=== PATIENT | male | born 1990 | race Caucasian/White ===

== ENCOUNTER 2021-11-09 00:27 | Day surgery (SDC) | payer OTHER, SELFPAY ==
[2021-11-03 17:38] VITALS: BMI 29.9
--- NOTE | 2021-11-03 17:43 | PC.NURSE ---
Report to the Outpatient Waiting Room, entrance under the green pavilion located off [facility], at time 1100___ on date 11/09/21_. OR Time: ___1300_. - You and your visitor will be asked to self-screen and do not enter if you have any COVID symptoms. - Only one visitor and NO children visitors are allowed at this time. - The patient visitor is requested to leave or wait in car when not with patient due to restrictions. - A mask is required within the hospital. Patients may have clear liquids (water, carbonated beverages, clear teas, apple juice) until 3 hours prior to surgery with a maximum of 20 ounces. - No food from midnight until time of surgery - Infants may have breast milk until 4 hours before surgery, formula 6 hours prior to surgery. - Children will be allowed to drink immediately following surgery. If applicable, please bring a bottle or sippy cup to assist with drinking. Juice, water, soda, and popsicles are readily available. For infants on formula, please bring formula the day of surgery. Pacifiers are allowed. Take the following medications with a SIP of water the morning of surgery: NONE Medications to discontinue per physician NONE Date to take last dose Please no make-up, nail argentine, hairspray, perfume, deodorant, or body powder the day of surgery. No jewelry (including any body piercings) or valuables the day of surgery, leave them at home. Please take a shower or bath the night before, or the morning of, surgery with an antibacterial soap. Wear comfortable, loose fitting clothing. Children are encouraged to wear pajamas. - Jewelry must be removed prior to entering the operating room. Rings and piercings that are not removed may be cut off. - The hospital will not accept responsibility for valuables. - Please leave all valuables, including medications, at home the day of surgery. If you are going home after surgery, a licensed interstate bus driver must drive you home. - NO public transportation without another adult. - We recommend that an adult stay with you for 24 hours following discharge. - We also recommend that you do not drive, make important decision, drink alcoholic beverages, or take any drugs that were not prescribed by your health care provider for at least 24 hours after your discharge time. For Pediatric surgeries, we recommend two adults accompany the child home (only one inside the building at this time). Follow any additional instructions given to you from your surgeon. If you or anyone in your household have experienced Covid symptoms in the past week, please notify your surgeon or the nurse liaison at the phone number below for possible testing. Telephone instructions given to ___LANE__and asked if any additional questions and then verbalized understanding. Patient advised to call surgeon office or pre surgery nurse liaison [phone] if any additional questions.
[2021-11-09 11:00] VITALS: BP 118/65; PULSE 61; RESP 18; TEMP 36.6; O2SAT 99
[2021-11-09] MEDS: LACTATED RINGERS 1,000 ML 30 ML IV CONT ×2 (11:00→14:29)
[2021-11-09] MEDS: ACETAMINOPHEN 500 MG TABLET 1000 MG PO (11:15)
[2021-11-09] MEDS: KETOROLAC 15 MG/ML VIAL (*BKC) IV PUSH (11:15)
--- NOTE | 2021-11-09 11:29 | P.PNAN_ITS ---
Anes - Initial Pre Proc Eval Procedure: Operation Date: 11/09/21 12:30 Proposed Procedures p Right Inguinal Hernia Repair - Forest Shirley MD Date/Time: 11/09/21 11:29 Surgeon: Forest Shirley MD Pre Op Diagnosis: right inguinal hernia Patient Data Age: 31 Gender: M Height: 1.83 m Weight: 100 kg Allergies Allergy/AdvReac Type Severity Reaction Status Date / Time No Known Allergies Allergy Verified 11/03/21 17:37 Home Medications Medication Instructions Recorded Confirmed Type No Home Medications 10/24/21 11/03/21 History Patient hx anesthesia problems: none Family hx anesthesia problems: none Results Review: All pre-operative results and documents have been reviewed as part of the pre- operative evaluation. [facility] Surgical History Surgical History History of tonsillectomy Family History Family History Mother Patient's mother is in good health Father Patient's father is in good health Sibling Patient's brother is in good health Grandparent Diabetes mellitus Cerebrovascular accident Social History Social History Smoking status: Former smoker Tobacco type: e-cigarettes/vaping Additional smoking assessment comments: VAPED FOR ONE WEEK Alcohol intake: current Alcohol use details: 2 PER MONTH Living arrangements: alone Additional occupation/education comments: Chemical [employer] Anes - Eval Final PreProcedure Day of Procedure 11/09/21 11:29 Patient weight: overweight Heart: regular rate and rhythm Lungs: clear to auscultation Airway: Mallampati scale class II Neurological: alert and oriented Last oral intake: >/= 8 hours ASA classification: II Emergent: no Anesthetic plan: proceed Anesthesia type and monitoring: general GIVS and standard monitoring Results Review: All pre-operative results and documents have been reviewed as part of the pre- operative evaluation. Informed Consent: The patient's anesthetic plan and its attendant risks and benefits were discussed with the patient/family/POA. Questions were solicited and answers provided to the satisfaction of the patient/family/POA.
--- NOTE | 2021-11-09 13:10 | WPDHPUPDATE1 ---
History and Physical Update Update Date/Time: 11/09/21 13:10 History and Physical has been reviewed, including an updated exam of the patient. There are NO changes in the patient's condition. Risks, benefits, and alternatives have been discussed and questions answered. Patient agrees to proceed with procedure.
[2021-11-09] MEDS: ceFAZolin 2 GM/D5W 50 ML 2 GM/50 ML BAG IVPB (13:15)
[2021-11-09 14:35] VITALS: BP 116/56; PULSE 72; RESP 12; O2SAT 98
--- NOTE | 2021-11-09 14:35 | W.PM.PROC2 ---
Procedure Note - Detailed Date of Procedure 11/09/21 Pre-op Diagnosis right inguinal hernia Post-op Diagnosis Same Procedure Performed Right inguinal hernia repair with extra-large PerFix Light plug and patch Surgeon Forest Shirley MD Bus Driver Supervisor Jerrica DAWN Anesthesia General (G IV S), Local (0.25% bupivacaine with epinephrine) and Other (Xaracoll) Indications Patient is a 31-year-old man who had noticed a bulge in the right groin. He saw his primary care physician and was noted to have a right inguinal hernia. This is gotten even bigger in the last 3 or 4 weeks. He was seen in the office and found to have a reducible right inguinal hernia. He is taken to surgery now for repair Findings For showed a large direct inguinal hernia. There was no indirect hernia. There was no real scar tissue from his repair done 30 years ago when he was an . Description of Procedure Patient was taken to surgery and anesthesia was introduced. The right groin and genitalia were prepped and draped. The proposed incision was marked on the skin. Local anesthesia was infiltrated in the skin and the deeper subcutaneous tissues. Incision was made dissection was carried down through the subcutaneous to the external oblique aponeurosis. The aponeurosis was exposed as was the external ring. Additional local was infiltrated deep to the aponeurosis in the area of the spermatic cord and inguinal canal contents. The aponeurosis was then opened laterally and extended medially through the external ring. Care was taken to avoid injury to the ilioinguinal nerve. The nerve was left attached to the spermatic cord and was avoided during the surgery to prevent injury. We then freed the leaves of the external oblique aponeurosis from the underlying inguinal canal contents. The cord was mobilized medially on a Jozef drain. The hernia was readily apparent and was obviously a direct hernia. Dissection of the hernia from the spermatic cord was carried out. The hernia defect occupied nearly the entire direct space. Once the hernia was dissected out adequately, the transversalis fascia was scored circumferentially around the hernia defect just above the neck. The hernia defect was then reduced. The defect was plugged with the extra-large PerFix Light plug. The edges of the plug was sutured to the transversalis fascia with interrupted 3-0 Vicryl suture. I then mostly closed the defect by suturing transversalis fascia to the mesh and to itself with interrupted 3-0 Vicryl suture. I looked in the spermatic cord. I did not see any indirect hernias. There was some lipomatous tissue which I dissected free from the cord structures and back to the internal ring. I amputated the lipomatous tissue and discarded it. I then cut the patch to the appropriate size and laid over the inguinal canal floor. The lateral leaves were passed beyond the cord. The 1st piece of Xaracoll was then laid over the patch. The spermatic cord and ilioinguinal nerve were laid over the Xaracoll. The external oblique aponeurosis was closed with interrupted 3-0 Vicryl suture. A 2nd piece of Xaracoll was then placed on the aponeurosis. Dipak's fascia was closed with interrupted 3-0 Vicryl suture. Last piece of Xaracoll was placed in the subcutaneous. The skin was loosely approximated with 4-0 Vicryl subcuticular interrupted skin suture. The skin was finally closed with a running 4-0 Monocryl skin suture. The wound was dressed with Exofin surgical adhesive. The patient was awakened and taken to recovery in good condition. Sponge and needle counts were correct x2. Implants Extra large PerFix Light plug and patch, Xaracoll Estimated Blood Loss -5 Drains No Packing No Pathology None sent Complications No immediate complications Condition Stable Disposition Same day [facility] Billing Surgery - Charge Forward: Surgery Billing (Right inguinal hernia repair)
[2021-11-09 15:05] VITALS: BP 112/69; PULSE 70; RESP 12
[2021-11-09 15:35] VITALS: BP 119/74; PULSE 58; RESP 12
== END 2021-11-09 16:40 | disposition home or self-care (01) ==
PROVIDERS: PCP Family Medicine; Visit Provider Surgery
PROC: (CPT 49505; principal; 2021-11-09 12:30)
DX: K40.90 Unilateral inguinal hernia, without obstruction or gangrene, not specified as recurrent (principal)
CPT/HCPCS: 49505; A9270; C1781; J0690; J1170; J1885; J2250; J3010; J7120

== ENCOUNTER 2024-06-19 11:27 | Outpatient (CLI) | payer BC, SELFPAY ==
--- NOTE | ~2024-06-19 | XR_ITS ---
XR hip BI 2V w AP pelvis 06/19/2024 12:05 Indication: Left hip pain Procedure: AP pelvis and 2 views each hip Comparison: No prior studies for comparison. Findings: There is anatomic alignment. No fracture or traumatic malalignment. Pelvic rings are intact . Sacral foramen are symmetric. Impression: 1: No significant bone or joint abnormality. Reviewed, dictated and finalized at location A. Impression: 1: No significant bone or joint abnormality.
--- NOTE | ~2024-06-19 | XR_ITS ---
3 VIEWS LUMBAR SPINE Ordering provider: Neal Wyatt MD History: . BACK PAIN . Comparison: None. FINDINGS: VERTEBRAL BODIES: No visible fracture or subluxation. DISK SPACES: Slight narrowing of the disc L4-L5 is not excluded. SOFT TISSUES: Normal. IMPRESSION: No acute osseous abnormality lumbar spine. Reviewed, dictated and finalized at location A.
== END 2024-06-19 11:28 | disposition home or self-care (01) ==
PROVIDERS: PCP Emergency Medicine; Visit Provider Emergency Medicine
DX: M54.9 Dorsalgia, unspecified (principal); M25.552 Pain in left hip
CPT/HCPCS: 72100; 73521

== ENCOUNTER 2024-07-04 01:20 | Day surgery (SDC) | payer BC, SELFPAY ==
[2024-06-25 10:15] VITALS: BMI 29.2
--- NOTE | 2024-06-25 10:16 | PC.NURSE ---
Report to the Outpatient Waiting Room, entrance under the green pavilion located off [facility], at time _0630_ on date _[id number]_. Planned Procedure Time: _0730_.? Time changes happen often and if your time is changed the preop area will call you the afternoon before. - You and your visitor will be asked to self-screen and do not enter if you have any COVID symptoms. Please call surgeon if you need to reschedule. - A mask is optional within the hospital at this time. Ok for light breakfast. - No smoking, or chewing tobacco (or any form of nicotine). No chewing gum, candy or mints. Take only the following medications with a SIP of water on the morning of surgery: ___None____ DO NOT STOP ANY OF YOUR OTHER PRESCRIPTION MEDICATIONS PRIOR TO SURGERY EXCEPT THE FOLLOWING Hold all vitamins and supplements for 3 days per anesthesiologist. Medications to discontinue per physician Date to take last dose Please no make-up, nail yi, hairspray, perfume, deodorant, or body powder the day of surgery.? No jewelry (including any body piercings) or valuables the day of surgery, leave them at home.? Please take a shower or bath the night before, or the morning of, surgery with an antibacterial soap.? Wear comfortable, loose fitting clothing.? - Jewelry must be removed prior to entering the operating room.? Rings and piercings that are not removed may be cut off. - The hospital will not accept responsibility for valuables.? - Please leave all valuables, including medications, at home the day of surgery. If you are going home after surgery, a licensed milk delivery driver must drive you home.? - NO public transportation without another adult if you receive anesthesia. Follow any additional instructions given to you from your surgeon. Telephone instructions given to __Milton___and asked if any additional questions and then verbalized understanding. Patient advised to call surgeon office or pre surgery nurse liaison [phone] if any additional questions.
[2024-07-04] VITALS (7 sets, daily range): BP systolic 105–125; BP diastolic 51–86; PULSE 64–74; RESP 14–18; TEMP 36.3; O2SAT 97–99
--- OUTSIDE RECORDS SUMMARY | 2024-07-04 01:22 | XMS_ITS | Continuity of Care Document ---
Author Organization [facility] Address [address] [place] [address] [place] [address] Phone Care Team Providers Care Daily Release And Dupe Printer Name Role Phone Neal Wyatt MD Unavailable Unavailable Allergies, Adverse Reactions, Alerts Substance Reaction Status Criticality No Known Allergies Active No Inform ation Medications Medication Instructions Dosage Effective Dates (start - stop) Status Comments prednisone 20 mg tablet take 3 Tablet by oral route every day 60 MG - Active meloxicam 15 mg tablet take 1 tablet by oral route every day 15 MG - Active metaxalone 800 mg tablet take 1 tablet by oral route 3 times every day as needed as needed 800 MG - Active PRN for pain, avoid driving or operate machines Procedures Procedure Date OFFICE/OUTPATIENT VISIT, [facility] PREV VISIT, NEW, AGE 18-39 OFFICE/OUTPATIENT VISIT, NEW Advance Directives Directive Yes / No Effective Date File Name No Information Encounters Encounter Description Practice Location Reason(s) For Visit Diagnoses Date Provider Providers Copied on Encounter OFFICE/OUTPAT IENT VISIT, EST [facility], [address] [place], [id number], [place] tel:[phone] [facility] back pain1 (chief complaint) Lumbago with sciatica, left side 5 Edmundo De Jesus. [address] [place], [id number] , [place]. tel:[phone] PREV VISIT, NEW, AGE 18-39 [facility], [address], [place], [place], [id number], [place] tel:[phone] [facility] physical (chief complaint) Encounter for general adult medical exam w abnormal findingsEpidermal cystMuscle spasm of back Edmundo De Jesus. [address], [place], [place], [id number] , [place]. tel:[phone] Family History Family Member Type Diagnosis Age At Onset Father Problem Alive and well Mother Problem Alive and well Brother Problem Alive and well Payers Payer name Insurance type Covered democrat ID Authoriza tion(s) No Information Social History Type Description Quantity Date Captured Comments Alcohol Use Details No Caffeine Use Details Unknown Tobacco Use Status Current non-smoker Smoking Status Never smoker Sex Male Vital Signs Date / Time: Height Weight BMI Pulse Rate Blood Pressure Temperature Respiratory Rate Body Surface Area Head Circumference BMI percentile Pulse Ox Inhaled Ox 3:54 PM 72.00 in 214.00 lbs 29.0 2 kg/m eter (2) 73 /min 110/78 mm[Hg] 98.5 F 16 /min Chief Complaint And Reason For Visit From encounter dated '06/23/2024 15:50'. back pain1 (chief complaint). Description: Pt twisted and sprained his low back and left hip area about one week ago Pt denies any loss of bowel or bladder control or saddle area paresthesia , Pt notices persistent mild low back pain with occasional left sciatica and numbness and tingling along lateral upper thigh area to his knee. Pt had negative L spine and also hip and pelvis x ray. Pt states that overall he is doing ok and he is ready to return to work. Plan Of Treatment Date Type Action Status Referral Ordered: Physical Therapy (related to Lumbago with sciatica, left side) ordered Referral Referred To: Physical Therapy Ordered: Referrals: Physical Therapy. Evaluate and treat ordered Referral Ordered: LUMBAR XRAY AP AND LAT ONLY ordered Referral Referred To: Forest Shirley [address] [place] [address], [phone] Ordered: Referrals: Forest Shirley. Evaluate and treat ordered History Of Present Illness Encounter Date Complaint History Of Prese nt Illness back pain1 Pt twisted and s prained his low back and left hip area about one week ago Pt denies any loss of bowel or bladder control or saddle area paresthesia , Pt notices persistent mild low back pain with occasional left sciatica and numbness and tingling along lateral upper thigh area to his knee. Pt had negative L spine and also hip and pelvis x ray. Pt states that overall he is doing ok and he is ready to return to work. physical Pt needs annual physical Pt slipped and fell on a ditch two days ago and twisted his low back, Pt denies any direct injury to his back. Pt fell on his knees. Pt denies any knee pain. Pt notices mild left hip pain as well. Pt notices low back pain since the fall Pt denies any sciatica or any loss of bowel or bladder control Pt denies any saddle area paresthesia. Pt states that the low back pain is improving slowly. Pt denies any sciatica or any neuropathy down his legs Pt states that his back feels very stiff with dull ache Pt also c/o a cystic lesion upper sekou area for several years with recurrent drainage. pt denies any acute symptoms Instructions Date Instruction Additional Infor mation No Information Assessments Type Assessment Date assessment Lumbago with sciatica, left side Mental Status Date Cognitive Assessment Orientation - [place] ed to time, place, person, situation.
--- NOTE | 2024-07-04 07:05 | WPDHPUPDATE1 ---
History and Physical Update Update Date/Time: 07/04/24 07:05 History and Physical has been reviewed, including an updated exam of the patient. There are NO changes in the patient's condition. Risks, benefits, and alternatives have been discussed and questions answered. Patient agrees to proceed with procedure.
[2024-07-04] MEDS: LIDO 1%/EPINEPHRINE 1:100,000 50 ML VIAL 20 ML INFILTRATE (07:25)
[2024-07-04] MEDS: BUPivacaine HCL 0.5% 10 ML AMP 20 ML INFILTRATE (07:25)
--- NOTE | 2024-07-04 07:50 | W.PM.PROC2 ---
Procedure Note - Detailed Date of Procedure 07/04/24 Pre-op Diagnosis Posterior neck sebaceous cyst Post-op Diagnosis Same Procedure Performed Excision of posterior neck sebaceous cyst with 4cm intermediate layered wound closure Surgeon Bossman Casanova MD Anesthesia Local Indications Patient is a 33-year-old white male presented was complains of a small lump on his posterior midline of his neck just at the base. On multiple occasions that has become red and drain a small amount of fluid but has not needed incision and drainage of an abscess. On examination appears to be consistent with a sebaceous cyst which has had episodes of inflammation. He presents now for excision of the cyst. Findings Patient had a [id number] sebaceous cyst in the posterior neck in the midline at the base. Description of Procedure After informed consent was obtained patient brought to the operating room was placed in the left lateral decubitus position on the operating table. The area the posterior midline of the neck just at the base was then prepped and draped usual sterile fashion. A time-out was then performed correctly identifying the patient as well as procedure to be performed. No IV was started and so no IV antibiotics were given perioperatively. 1% lidocaine mixed with 0.5% Marcaine with some epinephrine was injected around the cyst for local anesthetic effect. Once adequate local anesthesia with had been achieved and made a transverse elliptical incision through the skin with a scalpel incorporating the whole wall the cyst. Dissection carried deeply down through the dermis skin with a scalpel then electrocautery was used to completely excise out the ellipse of tissue with the cyst within it. The cyst was then measured was approximately [id number]. It was sent to pathology for examination. Hemostasis was then achieved an incision electrocautery. Was then irrigated sterile saline solution. Closure of the incision with a 4cm intermediate layered wound closure was then performed. Interrupted 2-0 Vicryl sutures were placed in the deeper subcutaneous tissues. This was followed by a layer of interrupted 3-0 Vicryl sutures the deep dermal layer. Skin edges were then approximated utilizing a running subcuticular 4 Monocryl suture. The incision was then cleaned and then skin glue was applied. The patient tolerated the procedure well no complications. All sponges, needles, and instrument counts were correct at the end procedure. EBL was _5__cc. The patient was awakened and taken to recovery in stable and satisfactory condition. Implants None Estimated Blood Loss 5 Drains No Packing No Pathology Yes (Sebaceous cyst to pathology) Complications No immediate complications Condition Stable Disposition Same day [facility] Billing Surgery - Charge Forward: Surgery Billing
== END 2024-07-04 08:00 | disposition home or self-care (01) ==
PROVIDERS: PCP Emergency Medicine; Visit Provider Surgery
PROC: (CPT 11422; principal; 2024-07-04 07:30)
DX: L72.0 Epidermal cyst (principal); F12.90 Cannabis use, unspecified, uncomplicated; Z98.890 Other specified postprocedural states; Z87.891 Personal history of nicotine dependence; Z82.49 Family history of ischemic heart disease and other diseases of the circulatory system
CPT/HCPCS: 11422; 12042; 88305; J2004